=== PATIENT | male | born 1945 | race Caucasian/White ===

== ENCOUNTER 2020-10-02 19:57 | Emergency (ER) | payer OTHER ==
[~2020-10-02] VITALS: Ht 172.7 cm; Wt 74.8 kg
[~2020-10-02 19:57] MED LIST: ATEN50 PO; ATOR80 PO; GABA300 PO; LISI5 PO; Magnesium200 MG PO; ROPI1 PO; TERA5 PO; VITAMIN D32000 UNI1 PO
== END 2020-10-02 20:17 | disposition home or self-care (01) ==
LOC: ER 19:57
DX: S01.111A Laceration without foreign body of right eyelid and periocular area, initial encounter (principal); Z79.899 Other long term (current) drug therapy; W22.8XXA Striking against or struck by other objects, initial encounter; Y99.0 Civilian activity done for income or pay; Y92.89 Other specified places as the place of occurrence of the external cause
CPT/HCPCS: 12011; 99283-25

== ENCOUNTER 2021-02-17 13:21 | Emergency (ER) | payer OTHER ==
[~2021-02-17] VITALS: Ht 167.6 cm; Wt 74.8 kg
[2021-02-17 14:05] LABS: BASOPHILS ABSOLUTE AUTO 0.04 K/mm3 (0.00-0.23); BASOPHILS PERCENT AUTO 1 % (0-2); EOSINOPHILS ABSOLUTE AUTO 0.22 K/mm3 (0.00-0.68); EOSINOPHILS PERCENT AUTO 4 % (0-6); Hematocrit 33.7 % (37.0-53.0); Hemoglobin 10.9 g/dL (13.5-17.5); IMMATURE GRAN ABSOLUTE AUTO 0.02 K/mm3 (0.00-0.10); IMMATURE GRAN PERCENT AUTO 0 % (0-1); LYMPHOCYTES ABSOLUTE AUTO 1.53 K/mm3 (0.84-5.20); LYMPHOCYTES PERCENT AUTO 27 % (21-46); MONOCYTES PERCENT AUTO 9 % (4-13); Mean Corpuscular HGB 28.5 pg (26.0-34.0); Mean Corpuscular HGB Conc 32.3 g/dL (31.5-36.5); Mean Corpuscular Volume 88 fL (80-100); Mean Platelet Volume 10.4 fL (9.1-12.4); NEUTROPHILS ABSOLUTE AUTO 3.31 K/mm3 (1.96-9.15); NEUTROPHILS PERCENT AUTO 59 % (41-73); Platelet Count 194 K/mm3 (150-400); RDW Coefficient Variation 12.6 % (11.7-14.2); RDW Standard Deviation 40.1 fL (35.1-46.3); Red Blood Cell Count 3.83 M/mm3 (4.30-5.90); White Blood Cell Count 5.62 K/mm3 (4.00-11.30)
[2021-02-17 14:26] LABS: Alanine Aminotransfer (ALT/SGP 18 U/L (12-78); Albumin, Blood 3.2 g/dL (3.4-5.0); Alk Phos 73 U/L (50-136); Anion Gap 4 mmol/L (6-16); Aspartate Aminotrans (AST/SGOT 10 U/L (12-37); Bilirubin, Total 0.3 mg/dL (0.1-1.0); Blood Urea Nitrogen 22 mg/dL (8-24); Bun/Creatinine Ratio 19.8 (12.0-20.0); CO2, Blood 25 mmol/L (21-32); Calcium, Blood 8.2 mg/dL (8.5-10.1); Chloride, Blood 110 mmol/L (98-108); Creatinine, Blood 1.11 mg/dL (0.60-1.20); Globulin, Blood 3.2 g/dL (2.2-4.0); Glomerular Filtration Rate >60 (60-); Glucose, Blood 108 mg/dL (70-99); Potassium, Blood 4.1 mmol/L (3.5-5.5); Sodium, Blood 139 mmol/L (136-145); Total Protein, Blood 6.4 g/dL (6.4-8.2); Troponin I <0.015 ng/mL (0.000-0.040)
== END 2021-02-17 15:04 | disposition home or self-care (01) ==
LOC: ER 13:21
PROVIDERS: Physician Assistant
DX: E86.0 Dehydration (principal); R55 Syncope and collapse; I10 Essential (primary) hypertension; Z79.899 Other long term (current) drug therapy
CPT/HCPCS: 80053; 83880; 84484; 85025; 93005; 93010; 99284-25

== ENCOUNTER 2021-03-06 09:11 | Emergency (ER) | payer OTHER ==
[~2021-03-06] VITALS: Ht 167.6 cm; Wt 76.2 kg
[2021-03-06] MEDS ORDERED: ASCO500 PO (09:23)
[2021-03-06] MEDS ORDERED: POLY500 PO (09:24)
[2021-03-06] MEDS ORDERED: FERROUS GLUCON324 M7 PO (09:25)
[2021-03-06] MEDS ORDERED: SILD50TA PO (09:27)
[2021-03-06 09:31] LABS: BASOPHILS ABSOLUTE AUTO 0.01 K/mm3 (0.00-0.23); BASOPHILS PERCENT AUTO 0 % (0-2); EOSINOPHILS ABSOLUTE AUTO 0.02 K/mm3 (0.00-0.68); EOSINOPHILS PERCENT AUTO 1 % (0-6); Hematocrit 34.1 % (37.0-53.0); Hemoglobin 11.5 g/dL (13.5-17.5); IMMATURE GRAN PERCENT AUTO 0 % (0-1); LYMPHOCYTES ABSOLUTE AUTO 0.67 K/mm3 (0.84-5.20); LYMPHOCYTES PERCENT AUTO 16 % (21-46); MONOCYTES ABSOLUTE AUTO 0.72 K/mm3 (0.16-1.47); MONOCYTES PERCENT AUTO 17 % (4-13); Mean Corpuscular HGB 29.1 pg (26.0-34.0); Mean Corpuscular HGB Conc 33.7 g/dL (31.5-36.5); Mean Corpuscular Volume 86 fL (80-100); Mean Platelet Volume 10.6 fL (9.1-12.4); NEUTROPHILS ABSOLUTE AUTO 2.88 K/mm3 (1.96-9.15); NEUTROPHILS PERCENT AUTO 67 % (41-73); Platelet Count 161 K/mm3 (150-400); RDW Coefficient Variation 12.3 % (11.7-14.2); RDW Standard Deviation 39.5 fL (35.1-46.3); Red Blood Cell Count 3.95 M/mm3 (4.30-5.90)
[2021-03-06 09:50] LABS: Alanine Aminotransfer (ALT/SGP 23 U/L (12-78); Albumin, Blood 3.4 g/dL (3.4-5.0); Albumin/Globulin Ratio 0.9 (0.8-1.8); Alk Phos 77 U/L (50-136); Anion Gap 7 mmol/L (6-16); Aspartate Aminotrans (AST/SGOT 12 U/L (12-37); Bilirubin, Total 0.3 mg/dL (0.1-1.0); Blood Urea Nitrogen 21 mg/dL (8-24); Bun/Creatinine Ratio 16.7 (12.0-20.0); CO2, Blood 24 mmol/L (21-32); Calcium, Blood 8.6 mg/dL (8.5-10.1); Chloride, Blood 105 mmol/L (98-108); Creatinine, Blood 1.26 mg/dL (0.60-1.20); Globulin, Blood 3.6 g/dL (2.2-4.0); Glomerular Filtration Rate 56 (60-); Glucose, Blood 129 mg/dL (70-99); Potassium, Blood 4.5 mmol/L (3.5-5.5); Sodium, Blood 136 mmol/L (136-145); Troponin I <0.015 ng/mL (0.000-0.040)
[2021-03-06] MEDS ORDERED: GUAI600T33 PO (10:40)
[2021-03-06] MEDS ORDERED: TRAM50 PO (10:40)
== END 2021-03-06 11:18 | disposition home or self-care (01) ==
LOC: ER 09:11
PROVIDERS: Emergency Medicine
DX: M17.11 Unilateral primary osteoarthritis, right knee (principal); I10 Essential (primary) hypertension; J40 Bronchitis, not specified as acute or chronic; Z79.899 Other long term (current) drug therapy
CPT/HCPCS: 36415; 71046; 73562-RT; 80053; 84484; 85025; 93005; 93010; 99284-25

== ENCOUNTER 2022-12-02 12:31 | Day surgery (SDC) | payer OTHER ==
[~2022-12-02] VITALS: Ht 162.6 cm; Wt 76.5 kg
[2022-12-02] VITALS (13 sets, daily range): BP systolic 107–179; BP diastolic 55–83
[~2022-12-02 12:31] MED LIST changes: +ACET500 PO; +ASCO500 PO; +ASPI81CH PO; +FERROUS GLUCON324 M7 PO; +GUAI600T33 PO; +POLY500 PO; +SILD25T PO; +SILD50TA PO; +TENORMIN50 MG PO; +TRAM50 PO
--- NOTE | 2022-12-02 14:52 | NUR ---
REPORT FROM BERTHA CARNEY RN. PT AXOX4, AMBULATED TO [facility] WITH STEADY GAIT. PT HAS AND DAUGHTER AT BEDSIDE, PT RESTING COMFORTABLY IN BED. GLASSES GIVEN TO DAUGHTER, RUEL. PT'S SUITCASE, CPAP MACHINE, AND WALKER PLACED IN PATIENT'S POSTOP ROOM, APPROVAL TO BE LEFT THERE BY JOSE ALFREDO MARTINEZ RN.
--- NOTE | 2022-12-02 15:12 | NUR ---
PRE-OP NOTE REPORT FROM KASEY CROSS. PRE-OP MEDICATION GIVEN. PT UP TO BR INDEPENDENTLY. PT A&OX4. NO COMPLAINTS. Patient confirms NPO status and agrees with scheduled surgery. Pre-Op teaching done. Pt verbalizes understanding.Ambulatory in Day Surgery
--- NOTE | 2022-12-02 18:52 | NUR ---
ARRIVAL TO UNIT PT TRANSFERRED FROM PACU TO UNIT VIA HOSPITAL BED. S/P R TKA, POD 0. AOX4. VSS. DENIES PAIN, N/V. SPINAL ANESTHESIA, UNABLE TO WIGGLE TOES. PPP BILATERALLY, BRISK CAP REFILL. AQUACEL DRESSING, C/D/I. LUNGS CLEAR UPON AUSCULTATION.
[2022-12-03 00:38] VITALS: BP 164/66
[2022-12-03 04:15] LABS: BASOPHILS ABSOLUTE AUTO 0.01 K/mm3 (0.00-0.23); BASOPHILS PERCENT AUTO 0 % (0-2); EOSINOPHILS PERCENT AUTO 0 % (0-6); Hematocrit 38.5 % (37.0-53.0); Hemoglobin 12.7 g/dL (13.5-17.5); IMMATURE GRAN ABSOLUTE AUTO 0.04 K/mm3 (0.00-0.10); IMMATURE GRAN PERCENT AUTO 0 % (0-1); LYMPHOCYTES ABSOLUTE AUTO 0.85 K/mm3 (0.84-5.20); LYMPHOCYTES PERCENT AUTO 8 % (21-46); MONOCYTES ABSOLUTE AUTO 0.22 K/mm3 (0.16-1.47); MONOCYTES PERCENT AUTO 2 % (4-13); Mean Corpuscular HGB 28.6 pg (26.0-34.0); Mean Corpuscular Volume 87 fL (80-100); Mean Platelet Volume 10.7 fL (9.1-12.4); NEUTROPHILS ABSOLUTE AUTO 9.12 K/mm3 (1.96-9.15); NEUTROPHILS PERCENT AUTO 89 % (41-73); Platelet Count 205 K/mm3 (150-400); RDW Coefficient Variation 12.7 % (11.7-14.2); RDW Standard Deviation 40.2 fL (35.1-46.3); Red Blood Cell Count 4.44 M/mm3 (4.30-5.90); White Blood Cell Count 10.24 K/mm3 (4.00-11.30)
[2022-12-03 04:51] LABS: Bun/Creatinine Ratio 26.1 (12.0-20.0); Calcium, Blood 8.7 mg/dL (8.5-10.1); Potassium, Blood 4.8 mmol/L (3.5-5.5)
[2022-12-03 04:53] VITALS: BP 168/67
--- NOTE | 2022-12-03 06:02 | NUR ---
SHIFT SUMMARY A/O X4- POD1 R TOTAL KNEE, AQUACEL C/D/I. VSS. PAIN MANAGED W/ TORADOL AND TYLENOL. TOLERATING PO INTAKE, NO REPORT OF N/V. VOIDING WELL. AMBULATED WELL W/ SBA, FWW, AND GB. WILL REPORT TO ONCOMING RN.
[2022-12-03 07:39] VITALS: BP 158/77
[2022-12-03] MEDS ORDERED: OXYC5 PO (07:56)
[2022-12-03 10:51] VITALS: BP 160/70
[2022-12-03 11:46] VITALS: BP 160/66
[2022-12-03 12:09] VITALS: BP 144/60
--- NOTE | 2022-12-03 12:20 | NUR ---
DISCHARGE NOTE AND PAIN MANAGEMENT PT PROVIDED WITH WRITTEN AND VERBAL DISCHARGE INSTRUCTIONS; HE AND HIS FAMILY REPORTED UNDERSTANDING. PT PROVIDED WITH CLEAN DRESSINGS. BP WAS ELEVATED PRIOR TO DISCHARGE, PT ALSO REPORTED ELEVATED PAIN. PT WAS GIVEN OXYCODONE, AFTER APPROX 45 MIN, PT REPORTED IMPROVED PAIN MANAGEMENT AND BP IMPROVED PRIOR TO DISCHARGE. PT ALERT AND ORIENTED AT TIME OF DISCHARGE. PT CLEARED THERAPY. MET ALL GOALS. PT ESCORTED OUT IN W/C BY [facility] STUDENT NURSE.
--- NOTE | 2022-12-03 12:26 | NUR ---
REACHED OUT TO DR. YOUNGBLOOD OFFICE REGARDING PRESCRIPTIONS. PER DR. YOUNGBLOOD OFFICE PT'[facility]. PT REQUESTED THAT THIS MEDICATIONS BE RE-SENT TO [facility]. STAFF AT DR. YOUNGBLOOD OFFICE REPORTED THEY WOULD REQUEST THE PRESCRIPTION BE SENT TO [facility]. PT AND HIS DAUGHTER WERE NOTIFIED.
--- NOTE | 2022-12-03 13:45 | NUR ---
DISCHARGE NOTE PT DISCHARGED HOME AT APPROX 12:20. PT WAS PROVIDED WITH WRITTEN AND VERBAL DISCHARGE INSTRUCTIONS AND REPORTED UNDERSTANDING. PT'S DAUGHTER WAS ALSO PRESENT DURING INSTRUCTION AND REPORTED UNDERSTANDING. PT WAS PROVIDED WITH AQUACEL DRESSINGS AND EDUCATED TO LOOK FOR S/S OF INFECTION, OXYCODONE SIDE EFFECTS, BOWEL CARE, AND FLUID INTAKE. PRIOR TO DISCHARGE PT EXPERIENCED PAIN AND HAD AN ELEVATED BP. PT WAS GIVEN OXYCODONE AND BP WAS RECHECKED AFTER 45 MIN. BP WAS 144/60 P 59 AND PT REPORTED DECREASE IN PAIN. PT WAS A&OX4, CLEARED BY PHYSICAL THERAPY IN THE AM, BELONGINGS WERE RETURNED, AND WAS ESCOURTED OUT IN A W/C.
== END 2022-12-03 12:20 | disposition home or self-care (01) ==
LOC: ORSCMMR 12:31 → ORD 15:45 → ORSCMMR 15:45 → SURS 18:51 → ORSCMMR 12-03 12:20
PROVIDERS: Orthopaedic Surgery
PROC: 0SRC0JA Replacement of Right Knee Joint with Synthetic Substitute, Uncemented, Open Approach (ICD-10-PCS; principal; 2022-12-02 15:45)
PROC: 8E0Y0CZ Robotic Assisted Procedure of Lower Extremity, Open Approach (ICD-10-PCS; principal; 2022-12-02 15:45)
DX: M17.11 Unilateral primary osteoarthritis, right knee (principal); M67.461 Ganglion, right knee; E78.5 Hyperlipidemia, unspecified; I10 Essential (primary) hypertension; N18.2 Chronic kidney disease, stage 2 (mild); Z79.899 Other long term (current) drug therapy
CPT/HCPCS: 27447; 20985; S2900; 36415; 73560-RT; 80048; 83735; 85025; 88304; 94660; 94762; 97110; 97116; 97162; 97530; A9270; C1776; J0171; J0690; J0735; J1100; J1885; J2405; J2704; J2795; J3010; J7120

== ENCOUNTER 2023-08-18 05:47 | Day surgery (SDC) | payer OTHER ==
[~2023-08-18] VITALS: Ht 162.6 cm; Wt 77.6 kg
[2023-08-18] VITALS (17 sets, daily range): BP systolic 124–196; BP diastolic 51–97
[~2023-08-18 05:47] MED LIST changes: +OXYC5 PO
--- NOTE | 2023-08-18 07:13 | NUR ---
Ambulatory in Day Surgery History, Chart, Medications and Allergies reviewed before start of procedure.Lungs clear T/O to Auscultation. Patient confirms NPO status and agrees with scheduled surgery. Patient reports completing Chlorhexadine shower X2 prior to admission to hospital.Surgical site prepped with 2% Chlorhexidine cloth wipe.SBP TRENDING 190'S-200'S-REPEATED ON OPPOSITE SIDE AND CHANGED CUFF TO BOTH LARGER AND SMALLER-RESULT THE SAME.
--- NOTE | 2023-08-18 08:30 | NUR ---
08/18/23 0830 Nolvia Bob SPINAL NERVE BLOCK COMPLETED BY DR. CRANE UPON ENTRY TO OR. PT TOLERATED WELL.
--- NOTE | 2023-08-18 10:33 | NUR ---
ARRIVAL TO SURGICAL UNIT VIA HOSPITAL BED, ALERT & PLEASANT. ASSESSMENT CHARTED. DENIES N/V SO SNACKS & DRINKS GIVEN. FAMILY AT BEDSIDE.
--- NOTE | 2023-08-18 18:09 | NUR ---
SHIFT SUMMARY PT HAS DONE WELL TODAY, BUT IS IMPULSIVE. WORKED w/ THERAPY. EATING, DRINKING, & VOIDING.
--- NOTE | 2023-08-19 05:43 | NUR ---
SUMMARY- PT PAIN MANAGED WELL. PT HAS BEEN AMBULATORY W/ GB AND FWW. PT DRINKING FLUIDS AND VOIDING WELL. PAIN MANAGED WELL. CALL LIGHT IN REACH.
[2023-08-19 05:58] LABS: BASOPHILS ABSOLUTE AUTO 0.04 K/mm3 (0.00-0.23); BASOPHILS PERCENT AUTO 1 % (0-2); EOSINOPHILS ABSOLUTE AUTO 0.37 K/mm3 (0.00-0.68); EOSINOPHILS PERCENT AUTO 4 % (0-6); Hematocrit 35.1 % (37.0-53.0); Hemoglobin 11.7 g/dL (13.5-17.5); IMMATURE GRAN ABSOLUTE AUTO 0.02 K/mm3 (0.00-0.10); IMMATURE GRAN PERCENT AUTO 0 % (0-1); LYMPHOCYTES ABSOLUTE AUTO 1.19 K/mm3 (0.84-5.20); LYMPHOCYTES PERCENT AUTO 14 % (21-46); MONOCYTES ABSOLUTE AUTO 0.85 K/mm3 (0.16-1.47); MONOCYTES PERCENT AUTO 10 % (4-13); Mean Corpuscular HGB 28.7 pg (26.0-34.0); Mean Corpuscular HGB Conc 33.3 g/dL (31.5-36.5); Mean Corpuscular Volume 86 fL (80-100); Mean Platelet Volume 10.5 fL (9.1-12.4); NEUTROPHILS ABSOLUTE AUTO 5.92 K/mm3 (1.96-9.15); NEUTROPHILS PERCENT AUTO 71 % (41-73); Platelet Count 161 K/mm3 (150-400); RDW Coefficient Variation 12.6 % (11.7-14.2); RDW Standard Deviation 39.9 fL (35.1-46.3); Red Blood Cell Count 4.07 M/mm3 (4.30-5.90); White Blood Cell Count 8.39 K/mm3 (4.00-11.30)
[2023-08-19 06:12] LABS: Bun/Creatinine Ratio 30.1 (12.0-20.0); Calcium, Blood 8.7 mg/dL (8.5-10.1); Creatinine, Blood 0.93 mg/dL (0.60-1.20); Magnesium, Blood 2.1 mg/dL (1.6-2.4); Potassium, Blood 4.4 mmol/L (3.5-5.5)
[2023-08-19 07:10] VITALS: BP 143/64
[2023-08-19 08:41] VITALS: BP 150/65
[2023-08-19] MEDS ORDERED: OXYC5 PO (09:05)
--- NOTE | 2023-08-19 10:00 | NUR ---
Pt. is sitting up in a recliner with bags packed awaiting discharge when he welcomed my visit. Pt. is pleasant. Facilitated a life review with Pt. sharing how important his [employer] niraj is. Consider matters of niraj and belief. Pt. displays evidence of engagement and awareness. Pt. also verbalized that his spouse has recently had hip surgery and is currently recovering. Listen with empathy and interest. Prayed with Pt. Pt. verbalized gratitude forthe spiritual care visit.
--- NOTE | 2023-08-19 10:55 | NUR ---
DISCHARGE PT HAS CLEARED THERAPY. PAIN WELL CONTROLLED. EATING, DRINKING, & VOIDING WELL. [facility] SENT w/ PT. ESCORTED OUT VIA W/C.
== END 2023-08-19 10:47 | disposition home or self-care (01) ==
LOC: ORSCMMR 05:47 → ORD 07:30 → SURS 10:11 → ORD 10:15 → ORSCMMR 08-19 10:47
PROVIDERS: Orthopaedic Surgery
PROC: 0SRD0JA Replacement of Left Knee Joint with Synthetic Substitute, Uncemented, Open Approach (ICD-10-PCS; principal; 2023-08-18 07:30)
DX: M17.12 Unilateral primary osteoarthritis, left knee (principal); Z96.651 Presence of right artificial knee joint; I10 Essential (primary) hypertension; E78.5 Hyperlipidemia, unspecified; Z79.899 Other long term (current) drug therapy
CPT/HCPCS: 36415; 73560-LT; 80048; 83735; 85025; 97110; 97116; 97162; 97530; A9270; C1713; C1776; J0171; J0690; J0735; J1885; J2250; J2795; J3010; J7120

== ENCOUNTER 2023-10-09 15:15 | Observation (INO) | payer OTHER ==
[~2023-10-09] VITALS: Ht 165.1 cm; Wt 74.8 kg
[2023-10-09 15:54] LABS: BASOPHILS ABSOLUTE AUTO 0.06 K/mm3 (0.00-0.23); BASOPHILS PERCENT AUTO 1 % (0-2); EOSINOPHILS ABSOLUTE AUTO 0.35 K/mm3 (0.00-0.68); EOSINOPHILS PERCENT AUTO 5 % (0-6); IMMATURE GRAN ABSOLUTE AUTO 0.03 K/mm3 (0.00-0.10); IMMATURE GRAN PERCENT AUTO 0 % (0-1); LYMPHOCYTES ABSOLUTE AUTO 2.46 K/mm3 (0.84-5.20); LYMPHOCYTES PERCENT AUTO 35 % (21-46); MONOCYTES ABSOLUTE AUTO 0.67 K/mm3 (0.16-1.47); MONOCYTES PERCENT AUTO 10 % (4-13); Mean Corpuscular HGB 28.2 pg (26.0-34.0); Mean Corpuscular HGB Conc 32.4 g/dL (31.5-36.5); Mean Corpuscular Volume 87 fL (80-100); Mean Platelet Volume 10.4 fL (9.1-12.4); NEUTROPHILS ABSOLUTE AUTO 3.45 K/mm3 (1.96-9.15); NEUTROPHILS PERCENT AUTO 49 % (41-73); Platelet Count 256 K/mm3 (150-400); RDW Coefficient Variation 13.5 % (11.7-14.2); RDW Standard Deviation 43.1 fL (35.1-46.3); Red Blood Cell Count 4.25 M/mm3 (4.30-5.90); White Blood Cell Count 7.02 K/mm3 (4.00-11.30)
[2023-10-09 16:10] LABS: Albumin, Blood 3.6 g/dL (3.4-5.0); Albumin/Globulin Ratio 0.9 (0.8-1.8); Bilirubin, Total 0.2 mg/dL (0.1-1.0); Calcium, Blood 9.1 mg/dL (8.5-10.1); Creatinine, Blood 0.88 mg/dL (0.60-1.20); Globulin, Blood 3.8 g/dL (2.2-4.0); Potassium, Blood 4.7 mmol/L (3.5-5.5); Total Protein, Blood 7.4 g/dL (6.4-8.2)
[2023-10-09] MEDS ORDERED: NS 1,000 ML IV SCH (21:00)
[2023-10-09] MEDS ORDERED: rOPINIRole HCl 1 MG Tab PO SCH (21:00)
[2023-10-09] MEDS ORDERED: Acetaminophen 325 MG TABLET PO PRN (21:00)
[2023-10-09] MEDS ORDERED: FLU VACC QS2023-24(6MOS UP)/PF 60 MCG/0.5 ML SYRINGE IM ONE (21:00)
[2023-10-09] MEDS ORDERED: Atorvastatin 40 MG Tab PO SCH (21:00)
[2023-10-09] MEDS ORDERED: Ondansetron HCl 2 MG / ML 2ML Vial IV PRN (21:00)
[2023-10-09] MEDS ORDERED: OxyCODONE HCL 5 MG TAB PO PRN (21:05)
[2023-10-09] MEDS ORDERED: Clopidogrel Bisulfate 300 MG Cap PO ONE (21:20)
[2023-10-09] MEDS ORDERED: Aspirin 81 MG Chew PO ONE (22:00)
[2023-10-09 22:50] VITALS: BP 175/87
[2023-10-10 02:53] VITALS: BP 184/76
[2023-10-10] MEDS ORDERED: CITALOPRAM HBR10 MG PO (03:34)
--- NOTE | 2023-10-10 05:11 | NUR ---
2250: ASSUMED CARE OF PT. NEW ADMISSION. PT IS A/O X4, REPORTS SYMPTOMS HAVE COMPLETLY RESOLVED. PT IS STEADY ON HIS FEET, FALL PRECAUTIONS WITH BED ALARM IN USE R/T DIZZINESS THIS MORNING WITH SYMPTOMS. FLUIDS STARTED TO PIV ORDERED, PT TOLERATED WELL THROUGH THE SHIFT. USING THE URINAL TO VOID. TELEMETRY IN PLACE IN SINUS RHYTHM. PT RESTED IN BED WITH EYES CLOSED AFTER COMPLETION OF ADMISSION. SAFETY MEASURES TAKEN, ALL NEEDS ADDRESSED.
[2023-10-10 07:17] VITALS: BP 178/64
[2023-10-10] MEDS ORDERED: Enoxaparin 40 MG/0.4 ML SYR SC SCH (09:00)
[2023-10-10] MEDS ORDERED: Atenolol 50 MG Tab PO SCH (09:00)
[2023-10-10] MEDS ORDERED: Clopidogrel Bisulfate 75 MG Tab PO SCH (09:00)
[2023-10-10] MEDS ORDERED: Aspirin 81 MG Chew PO SCH (09:00)
[2023-10-10] MEDS ORDERED: Lisinopril 5 MG Tab PO SCH (09:00)
[2023-10-10 12:25] LABS: CHOL/HDL RATIO 3.9; Cholesterol 197 mg/dL (50-200); HDL Cholesterol 51 mg/dL (>39); LDL/HDL RATIO 2.2; Low Density Lipoprotein Chol 111 mg/dL (0-110); Triglycerides 177 mg/dL (30-160); Very Low Density Lipoprot Chol 35 mg/dL (6-32)
--- NOTE | 2023-10-10 15:12 | NUR ---
MRI AND ECHO DONE, DR JAMISON ROUNDED, PATIENT TO GO HOME
[2023-10-10] MEDS ORDERED: CLOP75 PO (15:18)
[2023-10-10 15:43] VITALS: BP 186/82
[2023-10-10] MEDS ORDERED: Doxazosin Mesylate 2 MG Tab PO SCH (21:00)
== END 2023-10-10 16:38 | disposition home or self-care (01) ==
LOC: ER 15:15 → MEDS 15:16 → ENPENDDIS 10-10 14:59 → MEDS 10-10 16:38
PROVIDERS: Emergency Medicine; Family Medicine; ADMIT Internal Medicine
DX: G45.9 Transient cerebral ischemic attack, unspecified (principal); I10 Essential (primary) hypertension; E78.5 Hyperlipidemia, unspecified; N40.0 Benign prostatic hyperplasia without lower urinary tract symptoms; R59.1 Generalized enlarged lymph nodes; F03.90 Unspecified dementia, unspecified severity, without behavioral disturbance, psychotic disturbance, mood disturbance, and anxiety; Z79.82 Long term (current) use of aspirin; Z79.899 Other long term (current) drug therapy
CPT/HCPCS: 36415; 70450; 70496; 70498; 70551; 80053; 80061; 83735; 85025; 93005; 93010; 93306; 96372; 99285-25; A9270; G0378; J1650; J7030; Q9967

== ENCOUNTER 2024-04-15 14:05 | Inpatient (IN) | payer OTHER ==
[2024-04-15] VITALS (11 sets, daily range): BP systolic 116–143; BP diastolic 56–106
[~2024-04-15] VITALS: Ht 167.6 cm; Wt 77.8 kg
[~2024-04-15 14:05] MED LIST changes: +CITALOPRAM HBR10 MG PO; +CLOP75 PO
[2024-04-15] MEDS ORDERED: Verapamil HCL 2.5 MG/ML 2ML Injection ONE (14:24)
[2024-04-15] MEDS ORDERED: Heparin Sodium 1000 Units/ML 10ML MDV ONE (14:24)
[2024-04-15] MEDS ORDERED: NS 1,000 ML IV ONE ×2 (14:25→14:39)
[2024-04-15] MEDS ORDERED: Nitroglycerin 2 MG/20 ML BTL ONE (14:25)
[2024-04-15] MEDS ORDERED: NS 250 ML IV ONE (14:25)
[2024-04-15] MEDS ORDERED: Heparin Sodium 5000 Units/ML 1ML MDV IV ONE (14:25)
[2024-04-15 14:36] LABS: Calcium, Ionized (POC) 1.18 mmol/L (1.10-1.46); Chloride (POC) 108 mmol/L (98-108); Glucose (ISTAT POC) 127 mg/dL (70-99); Hemoglobin (POC) 11.9 g/dL (13.5-17.5); Potassium (POC) 4.1 mmol/L (3.5-5.5); Sodium (POC) 139 mmol/L (135-148); Total CO2 (POC) 23 mmol/L (21-32)
[2024-04-15] MEDS ORDERED: Ticagrelor 90 MG TABLET ONE (14:39)
[2024-04-15] MEDS ORDERED: Midazolam HCl 1MG / ML 2ML Vial ONE (14:39)
[2024-04-15] MEDS ORDERED: FentaNYL Citrate 50 MCG/ML 2 ML Injection ONE (14:39)
[2024-04-15 14:44] LABS: BASOPHILS ABSOLUTE AUTO 0.06 K/mm3 (0.00-0.23); BASOPHILS PERCENT AUTO 1 % (0-2); EOSINOPHILS ABSOLUTE AUTO 0.22 K/mm3 (0.00-0.68); EOSINOPHILS PERCENT AUTO 3 % (0-6); Hematocrit 36.8 % (37.0-53.0); Hemoglobin 12.5 g/dL (13.5-17.5); IMMATURE GRAN ABSOLUTE AUTO 0.02 K/mm3 (0.00-0.10); IMMATURE GRAN PERCENT AUTO 0 % (0-1); LYMPHOCYTES ABSOLUTE AUTO 2.01 K/mm3 (0.84-5.20); LYMPHOCYTES PERCENT AUTO 27 % (21-46); MONOCYTES ABSOLUTE AUTO 0.51 K/mm3 (0.16-1.47); MONOCYTES PERCENT AUTO 7 % (4-13); Mean Corpuscular HGB 29.6 pg (26.0-34.0); Mean Corpuscular Volume 87 fL (80-100); Mean Platelet Volume 10.8 fL (9.1-12.4); NEUTROPHILS ABSOLUTE AUTO 4.73 K/mm3 (1.96-9.15); NEUTROPHILS PERCENT AUTO 63 % (41-73); Platelet Count 209 K/mm3 (150-400); RDW Coefficient Variation 12.7 % (11.7-14.2); Red Blood Cell Count 4.23 M/mm3 (4.30-5.90); White Blood Cell Count 7.55 K/mm3 (4.00-11.30)
[2024-04-15 14:54] LABS: International Normalized Ratio 0.96; Prothrombin Time Results 10.3 Sec (9.7-11.5)
[2024-04-15 15:04] LABS: Albumin, Blood 3.3 g/dL (3.4-5.0); Bilirubin, Total 0.3 mg/dL (0.1-1.0); Bun/Creatinine Ratio 21.3 (12.0-20.0); Calcium, Blood 9.1 mg/dL (8.5-10.1); Creatinine, Blood 0.94 mg/dL (0.60-1.20); Globulin, Blood 3.4 g/dL (2.2-4.0); Potassium, Blood 4.2 mmol/L (3.5-5.5); Total Protein, Blood 6.7 g/dL (6.4-8.2)
[2024-04-15] MEDS ORDERED: Tirofiban HCL M-Hyd/NS 250 ML IV ONE (15:32)
[2024-04-15] MEDS ORDERED: Tirofiban HCL M-Hyd/NS 250 ML IV SCH (16:00)
--- NOTE | 2024-04-15 16:34 | NUR ---
arrival to pcu patient arrived to pcu via pcu bed from [facility] at 1555. patient is alert and oriented x4. patient is able to make needs known and uses call light appropriately. patient is concerned for his who has dementia, and is calling family to come get her since she came over in the ambulance. patient patient has a right radial site with tr band in place. patient is on aggrastat and is to be stopped at 1945. once stopped tr band to stay in place fully deflated until 2145 and then can begin to deflate the tr band. patient denies pain, chest pain/pressure or shortness of breath. vital signs stable. tele sinusbrady 57. see admit shift assessment. med rec done with the patient. plan of care is up to date at this time
[2024-04-15] MEDS ORDERED: Acetaminophen 325 MG TABLET PO PRN ×2 (17:20)
--- NOTE | 2024-04-15 17:58 | NUR ---
SHIFT SUMMARY no changes since previous note. right radial site is intact no hematoma bleeding or swelling. tr band in place with 9cc air in it. vitals stable. plan remais up to date
[2024-04-15] MEDS ORDERED: Heparin Sodium,Porcine 5,000 UNIT/0.5 ML SDV SC ONE (20:13)
[2024-04-15] MEDS ORDERED: Doxazosin Mesylate 2 MG Tab PO SCH (21:00)
[2024-04-15] MEDS ORDERED: Atorvastatin 40 MG Tab PO SCH (21:00)
[2024-04-15] MEDS ORDERED: Insulin Human Lispro 100 Units/ML 3ML Syringe SC SCH (21:00)
[2024-04-15] MEDS ORDERED: rOPINIRole HCl 1 MG Tab PO SCH (21:00)
[2024-04-15] MEDS ORDERED: Ticagrelor 90 MG TABLET PO SCH (21:00)
[2024-04-16] VITALS: BP 142/74
[2024-04-16 00:43] VITALS: BP 142/74
[2024-04-16 04:51] LABS: Hematocrit 37.4 % (37.0-53.0); Hemoglobin 12.5 g/dL (13.5-17.5); Mean Corpuscular HGB 28.7 pg (26.0-34.0); Mean Corpuscular HGB Conc 33.4 g/dL (31.5-36.5); Mean Corpuscular Volume 86 fL (80-100); Mean Platelet Volume 10.9 fL (9.1-12.4); Platelet Count 187 K/mm3 (150-400); RDW Coefficient Variation 12.7 % (11.7-14.2); RDW Standard Deviation 39.8 fL (35.1-46.3); Red Blood Cell Count 4.35 M/mm3 (4.30-5.90); White Blood Cell Count 7.78 K/mm3 (4.00-11.30)
[2024-04-16 05:18] VITALS: BP 134/66
[2024-04-16 05:21] LABS: Alanine Aminotransfer (ALT/SGP 37 U/L (12-78); Albumin, Blood 3.2 g/dL (3.4-5.0); Albumin/Globulin Ratio 0.9 (0.8-1.8); Alk Phos 85 U/L (50-136); Anion Gap 11 mmol/L (3-11); Aspartate Aminotrans (AST/SGOT 164 U/L (12-37); Bilirubin, Total 0.7 mg/dL (0.1-1.0); Blood Urea Nitrogen 17 mg/dL (8-24); Bun/Creatinine Ratio 18.8 (12.0-20.0); CHOL/HDL RATIO 4.6; CO2, Blood 23 mmol/L (21-32); Calcium, Blood 9.4 mg/dL (8.5-10.1); Chloride, Blood 112 mmol/L (98-108); Cholesterol 201 mg/dL (50-200); Globulin, Blood 3.4 g/dL (2.2-4.0); Glomerular Filtration Rate 88 (60-); Glucose, Blood 133 mg/dL (70-99); HDL Cholesterol 44 mg/dL (>39); Low Density Lipoprotein Chol 133 mg/dL (0-110); Potassium, Blood 4.1 mmol/L (3.5-5.5); Sodium, Blood 142 mmol/L (136-145); Total Protein, Blood 6.6 g/dL (6.4-8.2); Triglycerides 118 mg/dL (30-160); Very Low Density Lipoprot Chol 23 mg/dL (6-32)
[2024-04-16 08:37] VITALS: BP 138/62
[2024-04-16] MEDS ORDERED: Aspirin 81 MG Chew PO SCH (09:00)
[2024-04-16] MEDS ORDERED: Atenolol 50 MG Tab PO SCH (09:00)
[2024-04-16] MEDS ORDERED: Enoxaparin 40 MG/0.4 ML SYR SC SCH (09:00)
[2024-04-16] MEDS ORDERED: Lisinopril 5 MG Tab PO SCH (09:00)
[2024-04-16] MEDS ORDERED: Citalopram Hydrobromide 10 MG TAB PO SCH (09:00)
[2024-04-16 11:00] VITALS: BP 142/71
--- NOTE | 2024-04-16 14:42 | NUR ---
update md andre in to see patient around 1315. discussed plan of care and follow up on discharge. patient to follow up with operator/assistant foreman office in two weeks and to do cardiac rehab. patient to receive loading dose of plavix tomorrow at 0830 and then take 75mg plavix daily. this rn educated on medication. this rn educated on dose change of lipitor. patient verbalized understanding. medications faxed over to [place] [facility] and confirmed that they are able to do loading dose of plavix. patient waiting in room for discharge to be completed. family at bedside currently.
[2024-04-16] MEDS ORDERED: CLOPIDOGREL300 M1 PO (14:57)
--- NOTE | 2024-04-16 15:26 | NUR ---
discharge note this rn went over discharge medication. this rn highlighted medication dose change for lipitor, loading dose for plavix and then regular dose of plavix. this rn had the patient repeat back to take the 600mg loading dose of plavix tomorrow at 0830, then to take plavix 75mg oral daily. 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 cardiac rehab discussed with the patient. patient left with all belongings and in no distress.
== END 2024-04-16 15:20 | disposition home or self-care (01) | DRG 322 ==
LOC: ER 14:05 → PCU 14:28 → ICUE 14:28 → PCU 15:43
PROVIDERS: Internal Medicine; ADMIT Student in an Organized Health Care Education/Training Program
PROC: 027034Z Dilation of Coronary Artery, One Artery with Drug-eluting Intraluminal Device, Percutaneous Approach (ICD-10-PCS; principal; 2024-04-15)
PROC: B2111ZZ Fluoroscopy of Multiple Coronary Arteries using Low Osmolar Contrast (ICD-10-PCS; 2024-04-15)
PROC: 4A023N7 Measurement of Cardiac Sampling and Pressure, Left Heart, Percutaneous Approach (ICD-10-PCS; 2024-04-15)
DX: I21.19 ST elevation (STEMI) myocardial infarction involving other coronary artery of inferior wall (principal); I50.30 Unspecified diastolic (congestive) heart failure; E11.9 Type 2 diabetes mellitus without complications; G47.33 Obstructive sleep apnea (adult) (pediatric); I11.0 Hypertensive heart disease with heart failure; E78.5 Hyperlipidemia, unspecified; N40.0 Benign prostatic hyperplasia without lower urinary tract symptoms; F32.A Depression, unspecified; R74.01 Elevation of levels of liver transaminase levels; G25.81 Restless legs syndrome; F03.90 Unspecified dementia, unspecified severity, without behavioral disturbance, psychotic disturbance, mood disturbance, and anxiety; I08.2 Rheumatic disorders of both aortic and tricuspid valves; E66.9 Obesity, unspecified; Z86.73 Personal history of transient ischemic attack (TIA), and cerebral infarction without residual deficits; Z79.82 Long term (current) use of aspirin; Z79.02 Long term (current) use of antithrombotics/antiplatelets; Z79.811 Long term (current) use of aromatase inhibitors; Z79.899 Other long term (current) drug therapy; Z86.010 Personal history of colon polyps; Z87.19 Personal history of other diseases of the digestive system; Z98.890 Other specified postprocedural states; Z68.27 Body mass index [BMI] 27.0-27.9, adult
CPT/HCPCS: 36415; 71045; 76937; 80047; 80053; 80061; 82947; 83036; 83880; 84484; 85014; 85025; 85027; 85610; 93005; 93010; 93306; 93458; 94762; 99152; 99153; 99285-25; A9270; C1725; C1769; C1874; C1887; C1894; C9606; J1644; J1650; J2250; J3010; J3246; J7030; J7050; Q9967

== ENCOUNTER 2024-11-27 13:24 | Observation (INO) | payer OTHER ==
[~2024-11-27] VITALS: Ht 167.6 cm; Wt 73.9 kg
[~2024-11-27 13:24] MED LIST changes: +CLOPIDOGREL300 M1 PO
[2024-11-27 14:17] LABS: BASOPHILS ABSOLUTE AUTO 0.04 K/mm3 (0.00-0.23); BASOPHILS PERCENT AUTO 1 % (0-2); EOSINOPHILS ABSOLUTE AUTO 0.36 K/mm3 (0.00-0.68); EOSINOPHILS PERCENT AUTO 6 % (0-6); Hematocrit 38.1 % (37.0-53.0); Hemoglobin 12.6 g/dL (13.5-17.5); IMMATURE GRAN ABSOLUTE AUTO 0.01 K/mm3 (0.00-0.10); IMMATURE GRAN PERCENT AUTO 0 % (0-1); LYMPHOCYTES ABSOLUTE AUTO 1.98 K/mm3 (0.84-5.20); LYMPHOCYTES PERCENT AUTO 31 % (21-46); MONOCYTES ABSOLUTE AUTO 0.46 K/mm3 (0.16-1.47); MONOCYTES PERCENT AUTO 7 % (4-13); Mean Corpuscular HGB 28.8 pg (26.0-34.0); Mean Corpuscular HGB Conc 33.1 g/dL (31.5-36.5); Mean Corpuscular Volume 87 fL (80-100); Mean Platelet Volume 10.2 fL (9.1-12.4); NEUTROPHILS ABSOLUTE AUTO 3.47 K/mm3 (1.96-9.15); NEUTROPHILS PERCENT AUTO 55 % (41-73); Platelet Count 176 K/mm3 (150-400); RDW Coefficient Variation 12.8 % (11.7-14.2); Red Blood Cell Count 4.37 M/mm3 (4.30-5.90); White Blood Cell Count 6.32 K/mm3 (4.00-11.30)
[2024-11-27 14:29] LABS: Albumin, Blood 3.6 g/dL (3.4-5.0); Albumin/Globulin Ratio 1.1 (0.8-1.8); Bilirubin, Total 0.6 mg/dL (0.1-1.0); Bun/Creatinine Ratio 23.2 (12.0-20.0); Calcium, Blood 8.9 mg/dL (8.5-10.1); Creatinine, Blood 0.91 mg/dL (0.60-1.20); Globulin, Blood 3.4 g/dL (2.2-4.0); Potassium, Blood 4.1 mmol/L (3.5-5.5)
[2024-11-27] MEDS ORDERED: NS 1,000 ML IV SCH (18:35)
[2024-11-27] MEDS ORDERED: Carvedilol 6.25 MG Tab PO SCH (19:00)
[2024-11-27 21:00] VITALS: BP 165/62
[2024-11-27] MEDS ORDERED: rOPINIRole HCl 1 MG Tab PO SCH (21:00)
[2024-11-27] MEDS ORDERED: Doxazosin Mesylate 2 MG Tab PO SCH (21:00)
[2024-11-27 23:59] VITALS: BP 147/62
--- NOTE | 2024-11-28 00:21 | NUR ---
TRANSFER NOTE: PT ARRIVED FROM ER, SELF TRANSFERRED TO BED. IND IN THE ROOM. ORIENTED TO CALL LIGHT AND BATHROOM. PT AOX4 DENIES ANY NUMBNESS, CP, OR SOB. PT IN BED RESTING, BED IN LOWEST POSITION, CALL LIGHT IN REACH. CONTINUING CARE.
[2024-11-28 03:50] VITALS: BP 143/64
--- NOTE | 2024-11-28 04:18 | NUR ---
NURSING NOTE: PT COMPLAINED FO 2-10/18 CP NO SOB OR OTHER SYMPTOMS NOTED. TELE STILL RUNNING NSR IN THE 60'S PT ASSYMPTOMATIC, SAID IT WENT AWAY AFTER 5 MINUTES. COMPLAINED OF SOME L SHOULDER/ ARM WEAKNESS. STATED JUST THE TOP OF THE ARM FELT WEAKER, DIE BAKER STRENGTHS STILL EQUAL BILATERALLY, NO FACIAL DROOP, OR NUMBNESS/ TINGLING. PT STATES IT IS ACTIVELY GETTING BETTER ONLY LASTING A FEW MINUTES. CONTINUING TO MONITOR.
--- NOTE | 2024-11-28 05:12 | NUR ---
SHIFT SUMMARY: PT AOX4 IND TO BATHROOM OR USING URINAL WHILE HOOKED UP TO THE IV. CALLS APPROPRIATELY AND ABLE TO MAKE NEEDS KNOWN. COOPERATIVE IN CARE. SEE NURSING NOTE FOR DETAILS ON CP AND SOME WEAKNESS. COMPLAINS OF SOME TINGLING IN THE RIGHT HAND THAT LASTED FOR ABOUT 20 MIN OR SO AND THEN WENT AWAY. THE R ARM AND SHOULDER WEAKNESS SEEMS TO BE TRANSIENT WELL. NO COMPLAINTS OF CP OR SOB AT THIS TIME. GOOD OUTPUT CLEAR/YELLOW IN COLOR. PT TOLERATING MEDICATIONS WELL AND WAS ABLE TO GET GOOD REST LAST NIGHT. STATES FEELS INTERMITTENTLY BETTER AND THEN BACK TO THE SAME WHEN HE CAME IN MINUS THE CHEST PAIN IS EASIER. PT IN BED RESTING, BED IN LOWEST POSITION, CALL LIGHT IN REACH. CONTINUING CARE.
[2024-11-28] MEDS ORDERED: Insulin Human Lispro 100 Units/ML 3ML Syringe SC SCH (07:30)
[2024-11-28 07:43] VITALS: BP 166/67
[2024-11-28] MEDS ORDERED: Atorvastatin 40 MG Tab PO SCH (09:00)
[2024-11-28] MEDS ORDERED: AmLODIPine Besylate 5 MG Tab PO SCH (09:00)
[2024-11-28] MEDS ORDERED: Lisinopril 5 MG Tab PO SCH (09:00)
[2024-11-28] MEDS ORDERED: Clopidogrel Bisulfate 75 MG Tab PO SCH (09:00)
[2024-11-28] MEDS ORDERED: Enoxaparin 40 MG/0.4 ML SYR SC SCH (09:00)
[2024-11-28] MEDS ORDERED: Aspirin 81 MG Chew PO SCH (09:00)
[2024-11-28] MEDS ORDERED: Carvedilol12.5 MG PO (12:13)
[2024-11-28] MEDS ORDERED: Amlodipine Bes2.5 MG PO (12:14)
[2024-11-28] MEDS ORDERED: METF500C PO (12:14)
[2024-11-28] MEDS ORDERED: [UNRECOGNIZED DRUG - OTHER] (12:15)
[2024-11-28] MEDS ORDERED: IRON18 M1 (12:17)
[2024-11-28] MEDS ORDERED: ASCO500 PO (12:17)
[2024-11-28] MEDS ORDERED: Vitamin D1000 UNI1 PO (12:18)
--- NOTE | 2024-11-28 14:12 | NUR ---
DISCHARGE SUMMARY PT DC THIS SHIFT. DC INSTRUCTION GONE OVER WITH PT WHOM STATED UNDERSTANDING. [facility] PT HAS ENOUGH MEDICATION TO LAST HIM AT HOME TILL TOMORROW AND WILL GO PICK THEM UP THEN.
[2024-11-29] MEDS ORDERED: Atorvastatin 40 MG Tab PO SCH (09:00)
== END 2024-11-28 14:00 | disposition home or self-care (01) ==
LOC: ER 13:24 → ERHOLD 13:25 → MEDS 20:45
PROVIDERS: Student in an Organized Health Care Education/Training Program; ADMIT Internal Medicine
DX: G45.9 Transient cerebral ischemic attack, unspecified (principal); R20.0 Anesthesia of skin; R26.81 Unsteadiness on feet; R07.89 Other chest pain; I10 Essential (primary) hypertension; E78.5 Hyperlipidemia, unspecified; E11.9 Type 2 diabetes mellitus without complications; I25.10 Atherosclerotic heart disease of native coronary artery without angina pectoris; Z95.5 Presence of coronary angioplasty implant and graft; G47.33 Obstructive sleep apnea (adult) (pediatric); F32.A Depression, unspecified; G25.81 Restless legs syndrome; Z79.02 Long term (current) use of antithrombotics/antiplatelets; Z79.84 Long term (current) use of oral hypoglycemic drugs; Z79.899 Other long term (current) drug therapy
CPT/HCPCS: 70450; 70551; 71046; 80053; 82947; 84484; 85025; 85379; 93005; 93010; 93880; 96360; 96361; 96372; 99285-25; A9270; G0378; J1650; J7030